=== PATIENT | female | born 1975 | race Two or more races ===

== ENCOUNTER → 2021-03-07 | Outpatient (CLI) | payer OTHER ==
[2021-03-07 07:54] LABS: BASOPHILS % (AUTO) 0 % (0-1); EOSINOPHILS % (AUTO) 1 % (1-7); LYMPHOCYTES % (AUTO) 35 % (22-44); MEAN CORPUSCULAR HGB CONC 34.8 g/dL (32.4-35.8); MEAN PLATELET VOLUME 6.9 fL (7.4-10.4); MONOCYTES % (AUTO) 6 % (2-9); NEUTROPHILS % (AUTO) 58 % (42-75); PLATELET COUNT 377 x10^3/uL (130-400); RED BLOOD COUNT 4.62 x10^6/uL (3.82-5.3); RED CELL DISTRIBUTION WIDTH 12.8 % (9.6-15.2)
[2021-03-07 07:57] LABS: MD NO
[2021-03-07 07:59] LABS: CALCIUM 9.1 mg/dL (8.5-10.1)
[2021-03-07 08:14] LABS: ALANINE AMINOTRANSFERASE 53 U/L (12-78); ALKALINE PHOSPHATASE 84 U/L (45-117); BILIRUBIN,TOTAL 0.4 mg/dL (0.2-1.0); CHOL/HDL RATIO 3.7; CHOLESTEROL, TOTAL 240 mg/dL (140-239); CREATININE 0.78 mg/dL (0.55-1.02); FREE T4 (FREE THYROXINE) 0.98 ng/dL (0.76-1.46); HDL CHOL % 27 % (28-40); HDL CHOLESTEROL (DIRECT) 65 mg/dL (40-60); LDL CHOLESTEROL,CALCULATED 159 mg/dL (54-169); LDL/HDL RATIO 2.4 (0.5-3.0); TRIGLYCERIDES 80 mg/dL (50-200); VLDL CHOLESTEROL 16 mg/dL (0-25)
[2021-03-07 08:29] LABS: ANION GAP 5 mmol/L (5-15); CHLORIDE 110 mmol/L (98-107)
== END | disposition home or self-care (01) ==
LOC: LAB 07:18
PROVIDERS: ATTEND Family Medicine
DX: Z13.220 Encounter for screening for lipoid disorders (principal); Z13.228 Encounter for screening for other metabolic disorders; E55.9 Vitamin D deficiency, unspecified; N92.0 Excessive and frequent menstruation with regular cycle; E03.9 Hypothyroidism, unspecified; R73.09 Other abnormal glucose
CPT/HCPCS: 36415; 80053; 80061; 82306; 83036; 84436; 84439; 84443; 85025

== ENCOUNTER 2021-05-05 06:17 | Emergency (ER) | payer OTHER ==
[~2021-05-05] VITALS: Ht 162.6 cm; Wt 71.4 kg
--- NOTE | 2021-05-05 06:32 | NUR ---
PT C/O OF TONGUE PAIN DUE TO A GAS LAMP FALLING ON HER HEAD AND BITING PART OF THE LAMP. PT DENIES HEAD INJURY AND LOC. PT CURRENTLY HAS GAUZE WRAPPED AROUND HER TONGUE. DENIES N/V. ATTACHED TO MONITORS, VSS, NADN. DAUGHTER AT BEDSIDE. BED IN LOW, RAILS ENGAGED. CALL LIGHT ON LAP. PULLED OFF GAUZE AND TIP OF PTS TONGUE IS HANGING OFF BUT STILL CONNECTED. BLEEDING MILDLY AND REWRAPPED.
--- NOTE | 2021-05-05 06:45 | NUR ---
REPORT FROM GEGE MORE. PT SITTING ON MARIA E CARROLL/LIANE. CALL LIGHT WITHIN REACH. DAUGHTER AT BS.
[2021-05-05 06:56] VITALS: BP 106/59
[2021-05-05] MEDS ORDERED: LIDOCAINE 1%, 10ML INFIL ONE (07:00)
[2021-05-05] MEDS ORDERED: LIDOCAINE-MPF 1%, 5ML ONE (07:06)
--- NOTE | 2021-05-05 07:10 | NUR ---
PA AT BS FOR SUTURES
--- NOTE | 2021-05-05 07:30 | NUR ---
PT TOLERATED PROCEDURE WELL. NADN. CALL LIGHT WITHIN REACH. FAMILY AT BS. BED IN LOWEST POSITION, BED RAILS UP X2
--- NOTE | 2021-05-05 07:55 | NUR ---
Patient given discharge instructions and they have confirmed that they understand the instructions. Patient ambulatory with steady gait.
== END 2021-05-05 07:57 | disposition home or self-care (01) ==
LOC: ED 07:45
DX: S01.512A Laceration without foreign body of oral cavity, initial encounter (principal); W18.30XA Fall on same level, unspecified, initial encounter; Y93.89 Activity, other specified; Y92.89 Other specified places as the place of occurrence of the external cause; Y99.8 Other external cause status
CPT/HCPCS: 41250; 99284